=== PATIENT | male | born 1990 | race Caucasian/White ===

== ENCOUNTER 2019-06-20 02:10 | Emergency (ER) | payer BC ==
[2019-06-20] MEDS ORDERED: Sodium Chloride 0.9% 1,000 ML IV ONE (02:33)
[2019-06-20] MEDS ORDERED: Aspirin 325 MG Tab PO ONE (02:34)
--- NOTE | 2019-06-20 02:35 | EDM.PDOC ---
ED HPI GENERAL MEDICAL PROBLEM - General Chief Complaint: Chest Pain Stated Complaint: CHEST PAIN Time Seen by Provider: 06/20/19 05:59 Source of Information: Reports: Patient History Limitations: Reports: No Limitations - History of Present Illness Onset: Today Duration: Day(s):, Waxing/Waning Location: Reports: Chest Quality: Reports: Sharp Severity: Moderate Improves with: Reports: None Worsens with: Reports: None Associated Symptoms: Reports: No Other Symptoms, Shortness of Breath R mid chest Pain Score (Numeric/FACES): 7 - Related Data Allergies Allergy/AdvReac Type Severity Reaction Status Date / Time No Known Allergies Allergy Verified 06/20/19 02:18 Home Meds: Home Meds Levothyroxine 150 mcg PO ACBREAKFAST 06/20/19 [History] ED ROS GENERAL - Review of Systems Review Of Systems: Comprehensive ROS is negative, except as noted in HPI. Constitutional: Reports: No Symptoms, Fever, Malaise HEENT: Reports: No Symptoms Respiratory: Reports: No Symptoms, Shortness of Breath, Cough Cardiovascular: Reports: Chest Pain, Dyspnea on Exertion Endocrine: Reports: No Symptoms GI/Abdominal: Reports: No Symptoms : Reports: No Symptoms Musculoskeletal: Reports: No Symptoms Skin: Reports: No Symptoms Neurological: Reports: No Symptoms Psychiatric: Reports: No Symptoms Hematologic/Lymphatic: Reports: No Symptoms Immunologic: Reports: No Symptoms ED EXAM, GENERAL - Physical Exam Exam: See Below Free Text/Narrative:: 29-year-old male who comes in with shortness of breath and chest pain for few days. Patient states this is happened to him in the past. Patient has no family history of heart disease no history of high blood pressure no history of diabetes. Patient states she woke up feeling cold and short of breath decided to come to the ER. Patient's home: Has some tenderness in the right second intercostal space. Patient's lungs are clear to auscultation Abdomen soft and nontender and the extremities are normal Exam Limited By: No Limitations General Appearance: Alert, WD/WN, No Apparent Distress Eye Exam: Bilateral Eye: Normal Fundi, Normal Inspection Ears: Normal External Exam, Normal Canal, Hearing Grossly Normal, Normal TMs Ear Exam: Bilateral Ear: Auricle Normal, Canal Normal, TM normal Nose: Normal Inspection, Normal Mucosa, No Blood Throat/Mouth: Normal Inspection, Normal Lips, Normal Teeth, Normal Gums, Normal Oropharynx, Normal Voice, No Airway Compromise Head: Atraumatic, Normocephalic Neck: Normal Inspection, Supple, Non-Tender, Full Range of Motion Respiratory/Chest: No Respiratory Distress, Lungs Clear, Normal Breath Sounds, No Accessory Muscle Use, Chest Non-Tender Cardiovascular: Normal Peripheral Pulses, Regular Rate, Rhythm, No Edema, No Gallop, No JVD, No Murmur, No Rub GI/Abdominal: Normal Bowel Sounds, Soft, Non-Tender, No Organomegaly, No Distention, No Abnormal Bruit, No Mass (Male) Exam: Deferred Rectal (Males) Exam: Deferred Back Exam: Normal Inspection, Full Range of Motion Extremities: Normal Inspection, Normal Range of Motion, Non-Tender, No Pedal Edema, Normal Capillary Refill Neurological: Alert, CN II-XII Intact, Normal Cognition, Normal Gait, Normal Reflexes, No Motor/Sensory Deficits Psychiatric: Normal Affect, Normal Mood Skin Exam: Warm, Dry, Intact, Normal Color, No Rash Lymphatic: No Adenopathy Course - Vital Signs Last Recorded V/S: Last Vital Signs Temp 96.8 F 06/20/19 02:15 Pulse 62 06/20/19 05:00 Resp 18 06/20/19 05:00 BP 145/60 H 06/20/19 05:00 Pulse Ox 96 06/20/19 05:00 - Orders/Labs/Meds Orders: Active Orders 24 hr Category Date Time Status EKG Documentation Completion [RC] STAT Care 06/20/19 02:33 Active RT Aerosol Therapy [RC] ASDIRECTED Care 06/20/19 03:31 Active Labs: Laboratory Tests 06/20/19 06/20/19 06/20/19 Range/Units 02:35 02:35 05:31 WBC 13.13 H (4.0-11.0) K/uL RBC 5.27 (4.50-5.90) M/uL Hgb 16.6 (13.0-17.0) g/dL Hct 48.5 (38.0-50.0) % MCV 92.0 (80.0-98.0) fL MCH 31.5 (27.0-32.0) pg MCHC 34.2 (31.0-37.0) g/dL RDW Std Deviation 43.5 (28.0-62.0) fl RDW Coeff of Chavez 13 (11.0-15.0) % Plt Count 213 (150-400) K/uL MPV 10.80 (7.40-12.00) fL Neut % (Auto) 61.6 (48.0-80.0) % Lymph % (Auto) 28.1 (16.0-40.0) % [place] % (Auto) 8.8 (0.0-15.0) % Eos % (Auto) 1.0 (0.0-7.0) % Baso % (Auto) 0.5 (0.0-1.5) % Neut # (Auto) 8.1 H (1.4-5.7) K/uL Lymph # (Auto) 3.7 H (0.6-2.4) K/uL [place] # (Auto) 1.2 H (0.0-0.8) K/uL Eos # (Auto) 0.1 (0.0-0.7) K/uL Baso # (Auto) 0.1 (0.0-0.1) K/uL Nucleated RBC % 0.0 /100WBC Nucleated RBCs # 0 K/uL Sodium 141 (136-148) mmol/L Potassium 4.0 (3.5-5.1) mmol/L Chloride 105 (98-107) mmol/L Carbon Dioxide 28.2 (21.0-32.0) mmol/L BUN 15 (7.0-18.0) mg/dL Creatinine 1.1 (0.8-1.3) mg/dL Est Cr Clr Drug Dosing 109.96 mL/min Estimated GFR (MDRD) > 60.0 ml/min Glucose 100 (74-106) mg/dL Calcium 9.1 (8.5-10.1) mg/dL Total Bilirubin 0.5 (0.2-1.0) mg/dL AST 52 H (15-37) IU/L ALT 68 H (14-63) IU/L Alkaline Phosphatase 73 (46-116) U/L Troponin I < 0.050 < 0.050 (0.000-0.056) ng/mL Total Protein 7.5 (6.4-8.2) g/dL Albumin 3.7 (3.4-5.0) g/dL Globulin 3.8 (2.6-4.0) g/dL Albumin/Globulin Ratio 1.0 (0.9-1.6) Meds: Medications Discontinued Medications Generic Name Dose Route Start Last Admin Trade Name Patricia PRN Reason Stop Dose Admin Albuterol/Ipratropium 3 ml 06/20/19 03:30 06/20/19 03:49 Duoneb 3.0-0.5 Mg/3 Ml NEB 06/20/19 03:31 3 ml ONETIME ONE Administration Aspirin 325 mg 06/20/19 02:34 06/20/19 02:40 Aspirin PO 06/20/19 02:35 325 mg ONETIME ONE Administration Sodium Chloride 1,000 mls @ 1,000 mls/hr 06/20/19 02:33 06/20/19 02:40 Normal Saline IV 06/20/19 03:32 1,000 mls/hr .Bolus ONE Administration Ceftriaxone Sodium/Dextrose 1 50 mls @ 100 mls/hr 06/20/19 03:44 06/20/19 03: 48 gm/ Premix IV 06/20/19 04:13 100 mls/hr ONETIME ONE Administration Ceftriaxone Sodium/Dextrose Confirm 06/20/19 03:45 06/20/19 05:09 Rocephin In Dextrose,Iso-Osm 1 Gm/50 Ml Administered 06/20/19 03:46 Not Given Dose 50 mls @ as directed .ROUTE .STK-MED ONE Departure - Departure Time of Disposition: 06:05 Disposition: Home, Self-Care 01 Condition: Good Clinical Impression: Acute bronchitis Instructions: Acute Bronchitis, Adult, [id number] Forms: ED Department Discharge Sepsis Event Note - Evaluation Sepsis Screening Result: No Definite Risk - Focused Exam Vital Signs: Vital Signs Temp Pulse Resp BP Pulse Ox 06/20/19 05:00 62 18 145/60 H 96 06/20/19 04:30 64 142/61 H 06/20/19 04:00 70 138/70 06/20/19 03:30 70 147/72 H 06/20/19 02:15 96.8 F 80 16 145/95 H 96 Date Exam was Performed: 06/20/19 Time Exam was Performed: 05:58 - My Orders Last 24 Hours: My Active Orders 06/20/19 02:33 EKG Documentation Completion [RC] STAT 06/20/19 03:31 RT Aerosol Therapy [RC] ASDIRECTED - Assessment/Plan Last 24 Hours: My Active Orders 06/20/19 02:33 EKG Documentation Completion [RC] STAT 06/20/19 03:31 RT Aerosol Therapy [RC] ASDIRECTED
[2019-06-20 03:07] LABS: BLOOD UREA NITROGEN,BUN 15 mg/dL (7.0-18.0); CARBON DIOXIDE,CO2 28.2 mmol/L (21.0-32.0); CHLORIDE,CL 105 mmol/L (98-107); GLUCOSE RANDOM 100 mg/dL (74-106); SODIUM,NA 141 mmol/L (136-148)
--- NOTE | 2019-06-20 03:22 | CR ---
INDICATION: Chest pain TECHNIQUE: Chest radiograph 1 view COMPARISON: None FINDINGS: Moderate degradation of image quality noted due to body habitus. Mediastinum: The mediastinum is normal in appearance. The heart silhouette is normal in size and morphology. Lung: Mild bibasilar subsegmental atelectasis is noted. No sign of pleural effusion seen. No pneumothorax is identified. Bone and Soft tissue: Unremarkable for age. IMPRESSION: 1. Mild bibasilar subsegmental atelectasis is noted. Dictated by: Gianni Encarnacion MD @ 06/20/2019 03:21:51 (Electronically Signed)
[2019-06-20] MEDS ORDERED: cefTRIAXone 1 GM in Sodium Chloride 0.9% 50 ML IV ONE (03:29)
[2019-06-20] MEDS ORDERED: Albuterol/Ipratropium 3.0-0.5 MG/3 ML Neb Soln NEB ONE (03:30)
[2019-06-20] MEDS ORDERED: cefTRIAXone 1 GM in Premix Bag 1 BAG IV ONE (03:44)
== END 2019-06-20 06:24 | disposition home or self-care (01) ==
LOC: MW.ED 02:10
DX: J20.9 Acute bronchitis, unspecified (principal)
CPT/HCPCS: 36415; 71045; 80053; 84484; 85025; 93005; 96361; 96365; 99285; A9270; J0696; J7030; 99283; J7620-GY